=== PATIENT | male | born 1980 | race African-American/Black ===

== ENCOUNTER 2016-08-20 10:41 | Emergency (ER) | payer MEDICAID ==
[~2016-08-20] VITALS: Ht 180.3 cm; Wt 89.0 kg
[2016-08-20 10:45] VITALS: Ht 180.3 cm; Wt 89.0 kg
[2016-08-20] MEDS ORDERED: SOD CHLORIDE 0.9% 1,000 ML IV STA (13:17)
[2016-08-20] MEDS ORDERED: HYDROmorphONE 1 MG/ML SYG IV STA (13:17)
[2016-08-20] MEDS ORDERED: ONDANSETRON 4 MG INJ IV STA (13:17)
[2016-08-20 13:46] LABS: ADD SCAN DIFF NO
[2016-08-20 13:49] LABS: BASOPHILS % 0.7 % (0.0-2.0); EOSINOPHILS # 0.1 10^3/ul (0.0-0.5); EOSINOPHILS % 1.8 % (0.0-7.0); HEMATOCRIT 43.1 % (42.0-52.0); HEMOGLOBIN 13.7 g/dl (14.0-18.0); LYMPHOCYTES # 2.4 10^3/ul (0.8-2.9); LYMPHOCYTES % 39.6 % (15.0-51.0); MEAN CORPUSCULAR HEMOGLOBIN 30.4 pg (29.0-33.0); MEAN CORPUSCULAR HGB CONC 31.8 g/dl (32.0-37.0); MEAN CORPUSCULAR VOLUME 95.6 fl (82.0-101.0); MEAN PLATELET VOLUME 10.5 fl (7.4-10.4); MONOCYTE # 0.4 10^3/ul (0.3-0.9); MONOCYTES % 6.6 % (0.0-11.0); NEUTROPHIL # 3.1 10^3/ul (1.6-7.5); PLATELET COUNT 274 10^3/UL (140-415); RED BLOOD COUNT 4.51 10^6/ul (4.70-6.10); RED CELL DISTRIBUTION WIDTH 12.6 % (11.5-14.5)
[2016-08-20 13:59] LABS: ALBUMIN 4.5 g/dl (3.3-4.9)
[2016-08-20 14:00] LABS: POTASSIUM 3.9 mmol/L (3.5-5.1)
[2016-08-20 14:02] LABS: ALBUMIN/GLOBULIN RATIO 1.25; BILIRUBIN,INDIRECT 0.3 mg/dl (0-1.1); BILIRUBIN,TOTAL 0.3 mg/dl (0.2-1.3); CREATININE 0.79 mg/dl (0.61-1.24); TOTAL PROTEIN 8.1 g/dl (6.1-8.1)
[2016-08-20 14:03] LABS: CALCIUM 9.6 mg/dl (8.4-10.2)
[2016-08-20 14:07] LABS: ADD UMIC NO; URINE BILIRUBIN (Dip) NEGATIVE (NEGATIVE); URINE BLOOD (Dip) NEGATIVE (NEGATIVE); URINE COLOR LT. YELLOW (YELLOW); URINE GLUCOSE (Dip) NEGATIVE (NEGATIVE); URINE KETONES (Dip) NEGATIVE (NEGATIVE); URINE LEUKOCYTE ESTERASE (Dip) NEGATIVE (NEGATIVE); URINE NITRITE (Dip) NEGATIVE (NEGATIVE); URINE TOTAL PROTEIN (Dip) NEGATIVE (NEGATIVE); URINE UROBILINOGEN (Dip) 0.2 E.U./dL (0.1-1.0)
--- NOTE | 2016-08-20 14:18 | RADRPT ---
PROCEDURE: CT abdomen and pelvis without contrast. CLINICAL INDICATION: Abdominal Pain TECHNIQUE: CT scan of the abdomen and pelvis without contrast was performed and is reconstructed a t 2.5 mm contiguous axial intervals from the dome of the diaphragm to the inferior pubic rami.. The patient was scanned without intravenous contrast. Sagittal and coronal reformatted images were obt ained from the axial source images. The calculated radiation dose measures 517 mGy centimeters. The CTDI measures 8 mGy. COMPARISON: None. FINDINGS: The lung bases are clear of any infiltrate or nodule. No effusion is seen. The liver is of normal size, contour and attenuation with no mass or ductal dilatation. No gallston es are visualized. No splenic, adrenal or pancreatic abnormalities present. Kidneys are of normal size and contour. No hydronephrosis, calculus or masses seen. Ureters are o f normal course and caliber with no stone. No bladder mass or stone is present. There is diffuse th ickening of the wall of the urinary bladder. Prostate and seminal vesicles are normal. There is no aneurysm. No adenopathy is present. No bowel mass or obstruction is present. The appendix is normal. No phlegmon, ascites or pneumop eritoneum is visualized. The osseous structures are intact. IMPRESSION: No evidence of urolithiasis, obstructive uropathy, diverticulitis or appendicitis. Thick-walled urinary bladder. Question cystitis. .Brayan Varela MD, MD Date Time Electronically viewed and signed by .Brayan Varela MD, MD on 08/20/2016 14:18 .A/
[2016-08-20] MEDS ORDERED: HYDR-902 PO (15:03)
--- NOTE | 2016-08-20 15:08 | RADRPT ---
PROCEDURE: US Scrotal CLINICAL INDICATION: Scrotal pain TECHNIQUE: Images were taken during real time interrogation of the scrotum. Color Doppler was also performed. COMPARISON: None FINDINGS: Right Testicle: Is normal in size measuring 4.5 x 3.0 x 1.8 cm. No mass is identified. The echotexture is normal. There is normal vascular flow on color Doppler. There is a small to moderate hydrocele and a moderate sized varicocele. Left testicle: Is normal in size measuring 4.0 x 3.0 x 1.9 cm. No mass is identified and The echotexture appears normal. There is normal vascular flow on color Doppler. There is a small to moderate hydrocele and a moderate sized varicocele. Right Epidydemus: There is a right epididymal head cysts measuring 0.6 cm in diameter. There is a solid rounded echog enic structure superior to the right testicle and adjacent to the epididymis measuring 0.9 x 0.9 x 0 .8 cm with a central calcification. There is may represent a fibrous pseudotumor. Left Epedidymus: Appears normal. IMPRESSION: 1. Normal sized testicles with no intratesticular mass and with vascular flow demonstrated in each. 2. There are small to moderate bilateral hydroceles and moderate sized bilateral varicoceles. 3. There is a 0.6 cm in diameter right epididymal head cyst. 4. A 9 x 9 x 8 mm extra testicular intrascrotal mass is identified superior to the right testicle a nd adjacent to the epididymis with a small central calcification suspicious for a fibrous pseudotumo r. This could be further evaluated by means of MRI. Physician Sadie Date Time Electronically viewed and signed by Physician Sadie on 08/20/2016 15:08 /
[2016-08-20 15:14] VITALS: BP 127/76; PULSE 79; RESP 18; TEMP 97.8
--- NOTE | 2016-08-20 16:36 | ERD ---
ER Documentation Chief Complaint Date/Time DATE: 08/20/16 TIME: 16:34 Chief Complaint ap/flank pain several mos, worsen since last night, seen at [facility] Patient is a 36-year-old male with no medical problems who presents with abdominal pain and flank pain. He has right-sided flank pain and right-sided abdominal pain. It has been going on for the past few days. It comes and goes and is sharp in nature. He has had this in the past. He said that he has been to [facility] for this before. He denies fevers. He has had no treatment as of yet. Upon review of old medical records this is the patient's first visit to the ER. He does not currently have a primary doctor. ROS All systems reviewed and are negative except as per history of present illness. Medications Home Meds Active Scripts Hydrocodone/Acetaminophen ([place] 10-325 Tablet) 1 Each Tablet, 1 TAB PO Q6H Y for PAIN, #7 TAB Prov:NAUN WILLS MD 08/20/16 PMhx/Soc Medical and Surgical Hx: pt denies Medical Hx, pt denies Surgical Hx Hx Alcohol Use: Yes Hx Substance Use: No Hx Tobacco Use: Yes Smoking Status: Current every day smoker FmHx Family History: No diabetes Physical Exam Vitals Vital Signs Date Time Temp Pulse Resp B/P Pulse Ox O2 Delivery O2 Flow Rate FiO2 08/20/16 15:14 97.8 79 18 127/76 99 Room Air 08/20/16 10:45 98.1 85 18 119/69 99 Physical Exam Const: Mild distress secondary to pain Head: Atraumatic Eyes: Normal Conjunctiva ENT: Normal External Ears, Nose and Mouth. Neck: Full range of motion..~ No meningismus. Resp: Clear to auscultation bilaterally Cardio: Regular rate and rhythm, no murmurs Abd: Soft, right lower quadrant pain with palpation with guarding but no rebound Skin: No petechiae or rashes Back: No midline or flank tenderness Ext: No cyanosis, or edema Neur: Awake and alert : Bilateral testicular pain with palpation without swelling or redness noted Result Diagram: 08/20/16 1335 08/20/16 1335 Results 24 hrs Laboratory Tests Test 08/20/16 13:35 08/20/16 13:55 White Blood Count 6.010^3/ul Red Blood Count 4.5110^6/ul Hemoglobin 13.7g/dl Hematocrit 43.1% Mean Corpuscular Volume 95.6fl Mean Corpuscular Hemoglobin 30.4pg Mean Corpuscular Hemoglobin Concent 31.8g/dl Red Cell Distribution Width 12.6% Platelet Count 65301^3/UL Mean Platelet Volume 10.5fl Neutrophils % 51.0% Lymphocytes % 39.6% Monocytes % 6.6% Eosinophils % 1.8% Basophils % 0.7% Nucleated Red Blood Cells % 0.0/100WBC Neutrophils # 3.110^3/ul Lymphocytes # 2.410^3/ul Monocytes # 0.410^3/ul Eosinophils # 0.110^3/ul Basophils # 0.010^3/ul Nucleated Red Blood Cells # 0.010^3/ul Sodium Level 143mmol/L Potassium Level 3.9mmol/L Chloride Level 100mmol/L Carbon Dioxide Level 31mmol/L Anion Gap 16 Blood Urea Nitrogen 11mg/dl Creatinine 0.79mg/dl Glucose Level 74mg/dl Calcium Level 9.6mg/dl Total Bilirubin 0.3mg/dl Direct Bilirubin 0.00mg/dl Indirect Bilirubin 0.3mg/dl Aspartate Amino Transf (AST/SGOT) 81IU/L Alanine Aminotransferase (ALT/SGPT) 153IU/L Alkaline Phosphatase 101IU/L Total Protein 8.1g/dl Albumin 4.5g/dl Globulin 3.60g/dl Albumin/Globulin Ratio 1.25 Lipase 78U/L Urine Color LT. YELLOW Urine Clarity CLEAR Urine pH 5.5 Urine Specific [place] 1.010 Urine Ketones NEGATIVE Urine Nitrite NEGATIVE Urine Bilirubin NEGATIVE Urine Urobilinogen 0.2 E.U./dL Urine Leukocyte Esterase NEGATIVE Urine Hemoglobin NEGATIVE Urine Glucose NEGATIVE% Urine Total Protein NEGATIVE Current Medications Medications (Trade) Dose Ordered Sig/Willie Route PRN Reason Start Time Stop Time Status Last Admin Dose Admin Sodium Chloride (NS) 1,000 ml @ 1,000 mls/hr Q1H STAT IV 08/20/16 13:17 08/20/16 14:16 DC 08/20/16 13:39 Hydromorphone HCl (Dilaudid) 1 mg ONCE STAT IV 08/20/16 13:17 08/20/16 13:18 DC 08/20/16 13:40 Ondansetron HCl (Zofran Inj) 4 mg ONCE STAT IV 08/20/16 13:17 08/20/16 13:18 DC 08/20/16 13:40 Procedures/MDM CT scan negative per radiology. Ultrasound shows flow in the bilateral testicles per radiology. Smoking Cessation Therapy: Pt. was lectured for greater than 3 minutes on the health risks of continued smoking and the benefits of cessation. Patient is a 36-year-old male who presents with abdominal pain. Workup was negative including normal white blood cell count, CT scan, and ultrasound of the scrotum. The patient will be discharged with a prescription for ibuprofen and [place]. The patient can follow-up with Dr. Hu from pain management as he says that he has been to [facility] [place] emergency department 11 times for similar type complaints over the past year. The patient can return for any worsening symptoms. At this point I doubt appendicitis, cholecystitis, pancreatitis, or bowel obstruction. Departure Diagnosis: Primary Impression: Abdominal pain Abdominal location: generalized Qualified Code: R10.84 - Generalized abdominal pain Additional Impression: Anemia Anemia type: unspecified type Qualified Code: D64.9 - Anemia, unspecified type Condition: Fair Patient Instructions: Abdominal Pain Referrals: RAFAEL HU Additional Instructions: SPECIALIST: YOU HAVE A MEDICAL CONDITION WHICH REQUIRES YOU TO SEE A SPECIALIST WITHIN THE NEXT 1-2 DAYS. PLEASE FOLLOW UP WITH YOUR PRIMARY PHYSICIAN FOR REFFERAL.IF YOU DO NOT HAVE A PRIMARY CARE PHYSICIAN AND/OR YOU CAN NOT AFFORD TO SEE A PHYSICIAN THE FOLLOWING RESOURCES HAVE BEEN SUPPLIED TO YOU. IT IS YOUR RESPONSIBILITY TO BE SEEN BY THE SPECIALIST NAUN WILLS MD Aug 20, 2016 16:36
== END 2016-08-20 15:15 | disposition home or self-care (01) ==
LOC: FTE 10:41
DX: R10.84 Generalized abdominal pain (principal); D64.9 Anemia, unspecified; F17.210 Nicotine dependence, cigarettes, uncomplicated
CPT/HCPCS: 36415; 74176; 76870; 80053; 81003; 83690; 85025; 96361; 96374; 96375; J1170; J2405; J7030; Z7502